=== PATIENT | female | born 2000 | race African-American/Black ===

== ENCOUNTER 2020-06-27 22:51 | Emergency (ER) | payer MEDICAID, SELFPAY ==
[2020-06-27 22:52] VITALS: BP 123/75; PULSE 76; RESP 18; TEMP 36.8; O2SAT 97; BMI 24.1
--- NOTE | 2020-06-27 23:33 | ED.ABDPAIN ---
HPI - Abdominal Pain General Chief Complaint: Abdominal Pain Stated Complaint: Abdominal pain Time Seen by Provider: 06/27/20 23:07 Source: patient Mode of arrival: ambulatory Limitations: no limitations History of Present Illness HPI narrative: 19-year-old female came in with frequent urination, dysuria, patient used [id number] medication to help her symptoms noticed that her urine is turning into wore inch, patient now started to have upper back pain bilaterally, upper abdominal pain in. Patient declined any nausea, vomiting, fever, chills. No vaginal discharge or bleeding. No vomiting or diarrhea. Never had abdominal surgery in the past. Related Data Previous Rx's Medication Instructions Recorded nitrofurantoin monohyd/m-cryst 100 mg PO Q12H 3 Days #6 cap 06/28/20 [Macrobid] Allergies Allergy/AdvReac Type Severity Reaction Status Date / Time pollen extracts [POLLEN] Allergy Intermediate SNEEZING, Unverified 12/04/19 17:23 EYE REDNESS [facility] SOAP Allergy Mild RASH Uncoded 12/04/19 17:23 Review of Systems Review of Systems All other systems are reviewed and are negative Constitutional: Reports as per HPI and Reports no additional constitutional complaints Eyes: Reports as per HPI and Reports no additional eye complaints Reports system reviewed and no additional complaints, except as documented Cardiovascular: Reports as per HPI and Reports no additional cardiovascular complaints Respiratory: Reports as per HPI and Reports no additional respiratory complaints Gastrointestinal: Reports as per HPI and Reports no additional gastrointestinal complaints Genitourinary: Reports no additional female genitourinary complaints Musculoskeletal: Reports no additional musculoskeletal complaints Skin/Breast: Reports system reviewed and no additional complaints, except as docu Psychiatric: Reports no additional psychiatric complaints Endocrine: Reports no additional endocrine complaints Hematologic/Lymphatic: Reports no additional hematologic/lymphatic complaints Allergic/Immunologic: Reports no additional allergic/immunologic complaints Reports system reviewed and no additional complaints, except as documented and Reports Abnormal speech present Physical Exam Vital Signs: Vital Signs: Last Vital Signs Temp 98.3 F 06/27/20 22:52 Pulse 76 06/27/20 22:52 Resp 18 06/27/20 22:52 BP 123/75 06/27/20 22:52 Pulse Ox 97 06/27/20 22:52 Body Mass Index 24.1 Vital signs have been reviewed as appeared to be correct. Blood pressure normal. Heart rate normal. Respiration rate normal. Temperature normal. Oxygen saturation normal. Appearance: Alert. Oriented X3. No acute distress. Head: Normal external exam. Normocephalic. Atraumatic. No Watkins signs noted. No raccoon eyes noted Eyes: PERRLA. EOMI. Conjunctiva and sclera normal. Eyelids normal. ENT: TM's Normal. Pharynx normal. Uvula midline. Moist mucous membranes. No trismus noted. No drooling noted. No muffled voice noted. Neck: Normal inspection. Neck supple. FROM. No adenopathy. Thyroid Normal. No meningeal signs. No neck mass noted. CVS: Normal heart rate and rhythm. Heart sound normal. No murmurs noted. Pulses normal throughout. Respiratory: No respiratory distress. Painless inspiration. Breath sounds normal. No wheezes/rales/rhonchi noted. Chest nontender. No accessory muscle usage noted or decreased air movement noted. Abdomen: Soft, mild epigastric tenderness, no rebound tenderness, no guarding.. Bowel sounds normal in all 4 quadrants. No distention noted. No organomegaly noted. No visible injury noted. Back: Bilateral CVA tenderness. Full range of motion noted. Skin: Skin warm and dry. Normal skin color. Normal skin turgor. No rashes/lesions/lacerations noted. Extremities: No lower extremity edema. Extremities exhibit normal range of motion. Extremities nontender. Neuro: Oriented X 3. No motor deficit. No sensory deficit. Reflexes normal. Course Course Course Narrative: Assessment and plan. 19-year-old female came in with symptoms of urinary frequency, dysuria, upper back pain. UA showing small leuko history is given the patient's symptomatic will start patient on Macrobid for 3 days and encouraged the patient to drink plenty of fluids. MDM - Abdominal Pain Lab Data Attestation: I reviewed the patient's lab results. Result diagrams: 06/28/20 00:00 06/28/20 00:00 Labs: Lab Results 06/28/20 06/28/20 06/28/20 Range/Units 00:00 00:00 00:00 WBC 8.8 (4.8-10.8) X10*3/uL RBC 4.21 (4.20-5.50) X10*6/uL Hgb 11.5 L (12.0-16.0) g/dl Hct 36.2 L (37-47) % MCV 86.0 (80-98) fL MCH 27.3 (27.0-33.0) pg MCHC 31.8 (31.0-35.0) g/dl RDW 13.2 (11.0-16.0) % Plt Count 319 (160-400) X10*3/uL MPV 9.8 (9.4-12.3) fL Immature Gran % (Auto) 0.1 (0.0-0.4) % Neut % (Auto) 59.3 (45-73) % Lymph % (Auto) 30.8 (20-40) % [place] % (Auto) 8.0 (2-11) % Eos % (Auto) 1.3 (0-4) % Baso % (Auto) 0.5 (0-2) % Lymph # (Auto) 2.7 (1.2-4.9) X10*3/uL [place] # (Auto) 0.7 (0.1-1.2) X10*3/uL Eos # (Auto) 0.1 (0.0-0.4) X10*3/uL Baso # (Auto) 0.0 (0.0-0.2) X10*3/uL Abs Immat Gran (auto) 0.01 (0.00-0.03) X10*3/uL Absolute Neuts (auto) 5.2 (2.0-8.3) X10*3/uL Absolute Nucleated RBC 0.000 (0.0-0.012) X10*3/uL Nucleated RBC % (auto) 0.0 (0.0-0.2) /100WBC Sodium 139 (135-145) mmol/L Potassium 4.6 (3.3-5.1) mmol/L Chloride 107 (96-108) mmol/L Carbon Dioxide 21 L (22-29) mmol/L Anion Gap 16 (12-20) BUN 11 (9-16) mg/dL Creatinine 0.91 (0.5-1.4) mg/dL Estim Creat Clear Calc 89.4 Estimated GFR > 60 Random Glucose 82 (60-115) mg/dL Calcium 9.1 (8.4-10.2) mg/dL Total Bilirubin 0.5 (0.0-1.0) mg/dL Direct Bilirubin 0.3 (0.0-0.5) mg/dL AST 16 (5-31) U/L ALT 16 (0-31) U/L Alkaline Phosphatase 81 (39-117) U/L Total Protein 7.4 (6.5-8.0) g/dL Albumin 4.1 (3.5-5.0) g/dL Lipase 13 (8-78) U/L Urine Color DARK YELLOW Urine Appearance HAZY Urine pH 6.0 (5.0-8.0) Ur Specific [place] >= 1.030 H (1.005-1.025) Urine Protein TRACE (NEG-TRACE) MG/DL Urine Glucose (UA) NEG (NEG) MG/DL Urine Ketones 40 (NEG) MG/DL Urine Blood NEG (NEG) Urine Nitrite NEG (NEG) Ur Leukocyte Esterase TRACE H (NEG) Urine RBC 0-2 (0) /HPF Urine WBC 1-4 (0-4) /HPF Ur Squamous Epith Cells 3+ /LPF Urine Bacteria 2+ /LPF Urine Mucus 2+ /LPF Urine Test (NEGATIVE) 06/28/20 Range/Units 00:00 WBC (4.8-10.8) X10*3/uL RBC (4.20-5.50) X10*6/uL Hgb (12.0-16.0) g/dl Hct (37-47) % MCV (80-98) fL MCH (27.0-33.0) pg MCHC (31.0-35.0) g/dl RDW (11.0-16.0) % Plt Count (160-400) X10*3/uL MPV (9.4-12.3) fL Immature Gran % (Auto) (0.0-0.4) % Neut % (Auto) (45-73) % Lymph % (Auto) (20-40) % [place] % (Auto) (2-11) % Eos % (Auto) (0-4) % Baso % (Auto) (0-2) % Lymph # (Auto) (1.2-4.9) X10*3/uL [place] # (Auto) (0.1-1.2) X10*3/uL Eos # (Auto) (0.0-0.4) X10*3/uL Baso # (Auto) (0.0-0.2) X10*3/uL Abs Immat Gran (auto) (0.00-0.03) X10*3/uL Absolute Neuts (auto) (2.0-8.3) X10*3/uL Absolute Nucleated RBC (0.0-0.012) X10*3/uL Nucleated RBC % (auto) (0.0-0.2) /100WBC Sodium (135-145) mmol/L Potassium (3.3-5.1) mmol/L Chloride (96-108) mmol/L Carbon Dioxide (22-29) mmol/L Anion Gap (12-20) BUN (9-16) mg/dL Creatinine (0.5-1.4) mg/dL Estim Creat Clear Calc Estimated GFR Random Glucose (60-115) mg/dL Calcium (8.4-10.2) mg/dL Total Bilirubin (0.0-1.0) mg/dL Direct Bilirubin (0.0-0.5) mg/dL AST (5-31) U/L ALT (0-31) U/L Alkaline Phosphatase (39-117) U/L Total Protein (6.5-8.0) g/dL Albumin (3.5-5.0) g/dL Lipase (8-78) U/L Urine Color Urine Appearance Urine pH (5.0-8.0) Ur Specific [place] (1.005-1.025) Urine Protein (NEG-TRACE) MG/DL Urine Glucose (UA) (NEG) MG/DL Urine Ketones (NEG) MG/DL Urine Blood (NEG) Urine Nitrite (NEG) Ur Leukocyte Esterase (NEG) Urine RBC (0) /HPF Urine WBC (0-4) /HPF Ur Squamous Epith Cells /LPF Urine Bacteria /LPF Urine Mucus /LPF Urine Test NEGATIVE (NEGATIVE) Discharge Plan Discharge Clinical Impression: Dysuria Patient Disposition: Home, Self-Care Instructions: Dysuria (ED) Prescriptions: New nitrofurantoin monohyd/m-cryst [Macrobid] 100 mg capsule 100 mg PO Q12H 3 Days Qty: 6 RF: 0 Referrals: Delia Chang [Emergency Nurse] - 2 days COUNTS INCLUDE 234 BEDS AT THE [facility] Past Medical History Medical History (Updated 06/28/20 @ 00:45 by Loreto Morrison MD) UTI (urinary tract infection) Social History Social History Advance Directives: No Advance Directives Information Provided: No
[2020-06-28 00:06] LABS: MANUAL DIFF FLAG NO
[2020-06-28 00:18] LABS: Basophils Percent Auto 0.5 % (0-2); Eosinophils Absolute Auto 0.1 X10*3/uL (0.0-0.4); Eosinophils Percent Auto 1.3 % (0-4); Hematocrit 36.2 % (37-47); Hemoglobin 11.5 g/dl (12.0-16.0); Imm Gran Abs Auto 0.01 X10*3/uL (0.00-0.03); Imm Gran Pct Auto 0.1 % (0.0-0.4); Lymphocytes Absolute Auto 2.7 X10*3/uL (1.2-4.9); Lymphocytes Percent Auto 30.8 % (20-40); Mean Corpuscular HGB Conc 31.8 g/dl (31.0-35.0); Mean Corpuscular Hemoglobin 27.3 pg (27.0-33.0); Mean Platelet Volume 9.8 fL (9.4-12.3); Monocytes Absolute Auto 0.7 X10*3/uL (0.1-1.2); Neutrophils Absolute Auto 5.2 X10*3/uL (2.0-8.3); Neutrophils Percent Auto 59.3 % (45-73); Platelet Count 319 X10*3/uL (160-400); Red Blood Count 4.21 X10*6/uL (4.20-5.50); Red Cell Distribution Width 13.2 % (11.0-16.0); White Blood Count 8.8 X10*3/uL (4.8-10.8)
[2020-06-28 00:20] LABS: Appearance Urine HAZY; Color Urine DARK YELLOW; Glucose Urine UA NEG (NEG); Leukocyte Esterase Urine TRACE (NEG); Nitrite Urine NEG (NEG); Specific Gravity - Urine >= 1.030 (1.005-1.025); UACC Culture Trigger YES; Urine Blood NEG (NEG); Urine Ketones 40 MG/DL (NEG); Urine Protein TRACE MG/DL (NEG-TRACE)
[2020-06-28 00:27] LABS: UPreg QC Valid YES; Urine Pregnancy NEGATIVE (NEGATIVE)
[2020-06-28 00:29] LABS: Alanine Aminotransferase 16 U/L (0-31); Albumin Level 4.1 g/dL (3.5-5.0); Alkaline Phosphatase 81 U/L (39-117); Anion Gap 16 (12-20); Aspartate Amino Transferase 16 U/L (5-31); Bilirubin Direct 0.3 mg/dL (0.0-0.5); Bilirubin Total 0.5 mg/dL (0.0-1.0); Blood Urea Nitrogen 11 mg/dL (9-16); Calcium 9.1 mg/dL (8.4-10.2); Carbon Dioxide 21 mmol/L (22-29); Chloride 107 mmol/L (96-108); Creatinine Clr Calc Pharmacy 89.4; Estimated Glomerular Filt Rate > 60; Glucose Random 82 mg/dL (60-115); Lipase 13 U/L (8-78); Potassium 4.6 mmol/L (3.3-5.1); Sodium 139 mmol/L (135-145); Total Protein 7.4 g/dL (6.5-8.0)
[2020-06-28 00:31] LABS: Bacteria Urine 2+ /LPF; Mucus Urine 2+ /LPF; RBC Urine 0-2 /HPF (0); Squamous Epithelial Cell Urine 3+ /LPF
== END 2020-06-28 01:05 | disposition home or self-care (01) ==
PROVIDERS: Student in an Organized Health Care Education/Training Program; Emergency Provider Emergency Medicine; PCP Nurse Practitioner Family
DX: R30.0 Dysuria (principal); R10.13 Epigastric pain
CPT/HCPCS: 36415; 80048; 80076; 81001; 81003; 81025; 83690; 85025; 87086; 99283

== ENCOUNTER 2021-10-25 15:27 | Emergency (ER) | payer MEDICAID, SELFPAY ==
[2021-10-25 16:58] VITALS: BP 115/62; PULSE 62; RESP 14; TEMP 36.6; O2SAT 99; BMI 24.1
[2021-10-25 17:09] LABS: MANUAL DIFF FLAG NO
[2021-10-25 17:10] LABS: Basophils Percent Auto 0.4 % (0-2); Eosinophils Absolute Auto 0.4 X10*3/uL (0.0-0.4); Eosinophils Percent Auto 3.8 % (0-4); Hemoglobin 12.6 g/dl (12.0-16.0); Imm Gran Abs Auto 0.03 X10*3/uL (0.00-0.03); Imm Gran Pct Auto 0.3 % (0.0-0.4); Lymphocytes Percent Auto 28.4 % (20-40); Mean Corpuscular HGB Conc 32.3 g/dl (31.0-35.0); Mean Corpuscular Hemoglobin 28.4 pg (27.0-33.0); Mean Corpuscular Volume 87.8 fL (80.0-98.0); Mean Platelet Volume 9.7 fL (9.4-12.3); Monocytes Absolute Auto 0.7 X10*3/uL (0.1-1.2); Neutrophils Absolute Auto 6.4 x10*3/uL (2.0-8.3); Neutrophils Percent Auto 60.1 % (45-73); Platelet Count 262 X10*3/uL (160-400); Red Blood Count 4.44 X10*6/uL (4.20-5.50); Red Cell Distribution Width 13.2 % (11.0-16.0); White Blood Count 10.6 X10*3/uL (4.8-10.8)
[2021-10-25 17:50] LABS: Appearance Urine CLOUDY; Color Urine YELLOW; Glucose Urine UA NEG (NEG); Leukocyte Esterase Urine NEG (NEG); Nitrite Urine NEG (NEG); PH 5.5 (5.0-8.0); Specific Gravity - Urine >= 1.030 (1.005-1.025); UACC Culture Trigger NO; Urine Blood 3+ (NEG); Urine Ketones 5 MG/DL (NEG); Urine Protein TRACE MG/DL (NEG-TRACE)
[2021-10-25 17:53] LABS: UPreg QC Valid YES; Urine Pregnancy NEGATIVE (NEGATIVE)
[2021-10-25 17:57] VITALS: BP 135/80; PULSE 74; RESP 16; TEMP 37.1; O2SAT 98
--- NOTE | 2021-10-25 17:58 | ED_ITS ---
HPI - Female Genitourinary General Chief complaint: Vaginal Bleeding Stated complaint: Vag Bleed Cramping Time Seen by Provider: 10/25/21 17:43 Source: patient Mode of arrival: ambulatory Limitations: no limitations History of Present Illness HPI Narrative: Patient presents emergency department for evaluation of vaginal symptoms. she reports a couple days of vaginal itching, discomfort, white discharge, and spec ks of blood. Reports last menstrual period 10/16/2021, normal in duration and flow. Not using any form of contraceptive, currently sexually active. Denies concern for sexually transmitted infections. Reports a history of urinary tract infection, denies any history of vaginal infections. Denies fevers, chills, nausea, vomiting, abdominal pain, dysuria, urinary frequency/urgency/hesitancy. Related Data Previous Rx's Medication Instructions Recorded nitrofurantoin 100 mg PO Q12H 3 days #6 caps 06/28/20 monohydrate/macrocrystals 100 mg capsule (Macrobid) fluconazole 150 mg tablet 150 mg PO Q3D 2 doses #2 tabs 10/25/21 (Diflucan) Allergies Allergy/AdvReac Type Severity Reaction Status Date / Time pollen extracts [POLLEN] Allergy Intermediate SNEEZING, Unverified 10/25/21 16: 57 EYE REDNESS [facility] SOAP Allergy Mild RASH Uncoded 12/04/19 17:23 Review of Systems Review of Systems: Constitutional : No Fever, No Chills ENT/Mouth : No sore throat, No Rhinorrhea Eyes: No Eye Pain, No Redness Cardiovascular : No Chest Pain, No SOB Respiratory : No Cough, No Sputum, No Wheezing Gastrointestinal : No Nausea, No Vomiting, No Diarrhea, no abdominal pain, Genitourinary : No irregular bleeding, No Dysuria, No Urinary Frequency, positive vaginal discomfort, positive vaginal discharge Musculoskeletal : No Myalgias Skin : No rash Neuro : No Weakness, No Headache Psych : No Anxiety/Panic, No Depression Heme/Lymph: No bruising, No Lymphadenopathy Endocrine : No Polyuria, No Polydipsia Yes all other systems are reviewed and are negative [facility] Past Medical History Attestation statement: The following information was validated with the patient. Source: old records reviewed Medical History UTI (urinary tract infection) Social History Social History Advance Directives: No Advance Directives Information Provided: Yes Physical Exam Vital Signs: Vital Signs: Last Vital Signs Temp 98.7 F 10/25/21 17:57 Pulse 74 10/25/21 17:57 Resp 16 10/25/21 17:57 BP 135/80 10/25/21 17:57 Pulse Ox 98 10/25/21 17:57 O2 Del Method 10/25/21 17:57 BMI result Body Mass Index 24.1 Vital signs have been reviewed as normal and appeared to be correct. Blood pressure normal.? Heart rate normal.? Respiration rate normal. Temperature normal.? Oxygen saturation normal. Appearance: Alert.?Oriented to person, place and time. No acute distress.?Normal affect. Neck: Normal inspection.? Neck supple.?? CVS: Heart sounds normal. Normal heart rate and rhythm.? Pulses normal.?? Respiratory: No respiratory distress.? Lung sounds clear to auscultation bilaterally?? Abdomen: Soft and non-tender. Declined genitourinary exam Skin: Skin warm and dry.? Normal skin color.? Extremities: No lower extremity edema.? Neuro: Moves all extremities spontaneously. Sensation intact bilaterally. No motor deficits Ambulates with normal steady gait. Course Course Course Narrative: Patient is a 21-year-old female who presents emergency department for evaluation of vaginal symptoms, states she is concerned for vaginal infection or urinary tract infection. Abdominal exam is benign. Denies possibility of sexually transmitted infection, declines testing for chlamydia/gonorrhea, advised cannot completely exclude these infections the testing for them she verbalizes understanding of this.. Declines genitourinary exam. Denies any lesions. Discussed self swabbing for bacterial vaginosis panel. Given presence of discomfort, discharge will treat for vaginal yeast infection. Advised patient to be contacted should results for bacterial vaginosis return as positive, and discuss subsequent treatment. Urinalysis reveals without evidence of infection, urine test negative. MDM - Female Genitourinary Medical Records Attestation: I reviewed the patient's medical records. Lab Data Attestation: I reviewed the patient's lab results. Result diagrams: 10/25/21 17:03 Labs: Lab Results 10/25/21 10/25/21 10/25/21 Range/Units 17:03 17:29 17:29 WBC 10.6 (4.8-10.8) X10*3/uL RBC 4.44 (4.20-5.50) X10*6/uL Hgb 12.6 (12.0-16.0) g/dl Hct 39.0 (37.0-47.0) % MCV 87.8 (80.0-98.0) fL MCH 28.4 (27.0-33.0) pg MCHC 32.3 (31.0-35.0) g/dl RDW 13.2 (11.0-16.0) % Plt Count 262 (160-400) X10*3/uL MPV 9.7 (9.4-12.3) fL Immature Gran % (Auto) 0.3 (0.0-0.4) % Neut % (Auto) 60.1 (45-73) % Lymph % (Auto) 28.4 (20-40) % [place] % (Auto) 7.0 (2-11) % Eos % (Auto) 3.8 (0-4) % Baso % (Auto) 0.4 (0-2) % Lymph # (Auto) 3.0 (1.2-4.9) X10*3/uL [place] # (Auto) 0.7 (0.1-1.2) X10*3/uL Eos # (Auto) 0.4 (0.0-0.4) X10*3/uL Baso # (Auto) 0.0 (0.0-0.2) X10*3/uL Abs Immat Gran (auto) 0.03 (0.00-0.03) X10*3/uL Absolute Neuts (auto) 6.4 (2.0-8.3) x10*3/uL Absolute Nucleated RBC 0.000 (0.0-0.012) X10*3/uL Nucleated RBC % (auto) 0.0 (0.0-0.2) /100WBC Urine Color YELLOW Urine Appearance CLOUDY Urine pH 5.5 (5.0-8.0) Ur Specific [place] >= 1.030 H (1.005-1.025) Urine Protein TRACE (NEG-TRACE) MG/DL Urine Glucose (UA) NEG (NEG) MG/DL Urine Ketones 5 (NEG) MG/DL Urine Blood 3+ H (NEG) Urine Nitrite NEG (NEG) Ur Leukocyte Esterase NEG (NEG) Urine RBC 50-75 H (0) /HPF Urine WBC 0 (0-4) /HPF Ur Squamous Epith Cells 3+ /LPF Urine Bacteria TRACE /LPF Urine Mucus 4+ /LPF Urine Test NEGATIVE (NEGATIVE) Discharge Plan Discharge Clinical Impression: Candidiasis of vagina Patient Disposition: Home, Self-Care Instructions: Yeast Infection (ED) Additional Instructions: Your offered testing for sexually transmitted infections, however you declined. Testing results for yeast infection, and bacterial vaginosis will be available in a few days. Should the bacterial vaginosis resulted positive you will be contacted and provided with treatment. Take Diflucan as prescribed for vaginal yeast infection. If you continue to have symptoms 3 days after taking the initial Diflucan you may take a 2nd dose. Avoid excessively cleansing the area, water and mild non-scented soap maybe used, stay well hydrated, drink plenty of fluids. Follow-up with your doctor as needed for persistent symptoms. Return to the emergency department any new or worsening symptoms or concerns Prescriptions: New fluconazole [Diflucan] 150 mg tablet 150 mg PO Q3D Qty: 2 0RF No Action nitrofurantoin monohyd/m-cryst [Macrobid] 100 mg capsule 100 mg PO Q12H 3 Days Qty: 6 0RF Rx Instructions: must administer with a meal/food Interventions: ED Discharge Assessment Last Done: 10/25/21 18:39 Discharge Date/Time: 10/25/21 18:41
[2021-10-25 18:11] LABS: Bacteria Urine TRACE /LPF; Mucus Urine 4+ /LPF; RBC Urine 50-75 /HPF (0); Squamous Epithelial Cell Urine 3+ /LPF; WBC Urine 0 /HPF (0-4)
[2021-10-26 14:21] LABS: BV Int Neg Control Negative (Negative); BV Int Pos Control Positive (Positive)
== END 2021-10-25 18:41 | disposition home or self-care (01) ==
PROVIDERS: Nurse Practitioner Family; Emergency Provider Emergency Medicine
DX: B37.3 Candidiasis of vulva and vagina (principal)
CPT/HCPCS: 36415; 81001; 81025; 85025; 87480; 87510; 87660; 99283

== ENCOUNTER 2022-02-19 11:04 | Emergency (ER) | payer MEDICAID, SELFPAY ==
--- NOTE | ~2022-02-19 | CT_ITS ---
EXAMINATION: CT ANGIOGRAM OF THE CHEST WITH AND WITHOUT CONTRAST (CT PULMONARY ANGIOGRAM FOR PE) CLINICAL INFORMATION: Reason for Exam pleurisy and elevated D-dimer COMPARISON: None TECHNIQUE: Prior to contrast administration, noncontrast localization images were obtained. Subsequently, multidetector volumetric imaging was performed from the thoracic inlet to below the diaphragms following the administration of 65 mL Omnipaque 350 intravenous contrast. No contrast reaction reported Sagittal, coronal, and MIP oblique sagittal reformatted images were obtained on the CT workstation, uploaded to PACS, and reviewed. This CT examination was performed using dose optimization techniques as appropriate, variously including the following: *Automated exposure control *Adjustment of mA and/or kV according to patient size (this includes techniques or standardized protocols for targeted exams where dose is matched to indication/reason for exam; i.e. extremities or head) *Use of iterative reconstruction technique Total exam dose-length product 312 mGy-cm FINDINGS: QUALITY OF STUDY/CONTRAST BOLUS: Satisfactory. PULMONARY ARTERIES: No central or segmental pulmonary emboli. THORACIC AORTA: No aneurysm or dissection. LUNG: No focal consolidation, nodules or masses. PLEURA: No pleural effusion or pneumothorax. MEDIASTINUM: Normal heart size. No pericardial effusion. No hilar or mediastinal lymphadenopathy. No evidence of septal bowing or right heart strain. CHEST WALL/AXILLA: No axillary or internal mammary lymphadenopathy. OSSEOUS STRUCTURES: No acute or suspicious osseous abnormality. UPPER ABDOMEN: Unremarkable. No reflux of contrast into the hepatic veins to suggest elevated right heart pressures. CT/CT angio chest PE protocol IMPRESSION: No evidence of pulmonary embolism. No acute cardiopulmonary findings. VTE: negative
--- NOTE | ~2022-02-19 | XR_ITS ---
EXAMINATION: XR CHEST CLINICAL INFORMATION: Cough with chest discomfort COMPARISON: August 02, 2017 TECHNIQUE: 2 views of the chest were obtained. FINDINGS: No significant abnormality is noted involving the heart, lungs, mediastinum, bony thorax or soft tissues. XR/XR chest 2V IMPRESSION: No acute disease.
[2022-02-19 11:15] VITALS: BP 128/81; PULSE 76; RESP 18; TEMP 36.9; O2SAT 100; BMI 25.0
--- NOTE | 2022-02-19 11:23 | ED_ITS ---
HPI - URI/Sore Throat General Chief Complaint: Upper Respiratory Symptoms <Janet Douglass NP - Last Filed: 02/19/22 11:25> Stated Complaint: Rib pain/Chest pain <Janet Douglass NP - Last Filed: 02/19/22 11:25> Time Seen by Provider: 02/19/22 12:45 <Janet Douglass NP - Last Filed: 02/19/22 11:25> Source: patient <JACKIE Sandoval - Last Filed: 02/20/22 12:42> Mode of arrival: ambulatory <JACKIE Sandoval Last Filed: 02/20/22 12:42> Limitations: no limitations <JACKIE Sandoval Last Filed: 02/20/22 12:42> History of Present Illness HPI Narrative: 21-year-old female healthy presents to ED for coughing, chest pain on inspiration and bilateral rib pain. Patient concern for pleurisy. Patient denies any leg swelling, calf pain, coughing up blood, or being on any control. Patient denies any recent trauma recent surgery <JACKIE Sandoval Last Filed: 02/20/22 12:42> Related Data Home Medications: Previous Rx's Medication Instructions Recorded nitrofurantoin 100 mg PO Q12H 3 days #6 caps 06/28/20 monohydrate/macrocrystals 100 mg capsule (Macrobid) fluconazole 150 mg tablet 150 mg PO Q3D 2 doses #2 tabs 10/25/21 (Diflucan) benzonatate 100 mg capsule 100 mg PO TID PRN cough 5 days #15 02/19/22 caps ibuprofen 400 mg tablet 400 mg PO Q6H PRN pain 7 days #28 02/19/22 tabs <Janet Douglass NP - Last Filed: 02/19/22 11:25> Allergies/Adverse Reactions: Allergies Allergy/AdvReac Type Severity Reaction Status Date / Time pollen extracts [POLLEN] Allergy Intermediate SNEEZING, Unverified 10/25/21 16:[address] [facility] SOAP Allergy Mild RASH Uncoded 12/04/19 17:[address] <[address] Last Filed: 02/19/22 11:25> Review of Systems Review of Systems: Pleurisy cough and rib pain <JACKIE Sandoval - Last Filed: 02/20/22 12:42> Yes all other systems are reviewed and are negative <JACKIE Sandoval - Last Filed: 02/20/22 12:42> [facility] Past Medical History Medical History: Medical History UTI (urinary tract infection) <Janet Douglass NP - Last Filed: 02/19/22 11:25> Social History Social History: Social History Advance Directives: No Advance Directives Information Provided: No <Janet Douglass NP - Last Filed: 02/19/22 11:25> Physical Exam Vital Signs: Vital Signs: Last Vital Signs Temp 98.5 F 02/19/22 11:15 Pulse 76 02/19/22 11:15 Resp 18 02/19/22 11:15 BP 128/81 02/19/22 11:15 Pulse Ox 100 02/19/22 11:15 O2 Del Method 02/19/22 11:15 BMI result Body Mass Index 25.0 <Janet Douglass NP - Last Filed: 02/19/22 11:25> Vital Signs: Last Vital Signs Temp 98.5 F 02/19/22 11:15 Pulse 76 02/19/22 11:15 Resp 18 02/19/22 11:15 BP 128/81 02/19/22 11:15 Pulse Ox 100 02/19/22 11:15 O2 Del Method 02/19/22 11:15 BMI result Body Mass Index 25.0 <JACKIE Sandoval - Last Filed: 02/20/22 12:42> Const: General: cooperative, healthy appearing, comfortable, no acute d istress, well developed, alert, awake and Physically active <JACKIE Sandoval - Last Filed: 02/20/22 12:42> Orientation/consciousness: oriented to person, oriented to place, oriented to time and patient oriented x3 <JACKIE Sandoval Last Filed: 02/20/22 12:42> HEENT: Head: Yes normal to inspection, Yes No palpable skull fracture present, Yes normocephalic, Yes atraumatic and No abrasion <JACKIE Sandoval Last Filed: 02/20/22 12:42> Eyes: General: appearance normal, both eyes and all related structures <JACKIE Sandoval Last Filed: 02/20/22 12:42> Neck: Neck: Yes normal visual inspection, Yes full ROM, Yes no lymphadenopathy, Yes no meningeal signs, Yes trachea midline, Yes supple, No anterior neck swelling and No tender <JACKIE Sandoval Last Filed: 02/20/22 12:42> Chest: Chest palpation & inspection: normal inspection of the chest <JACKIE Sandoval Last Filed: 02/20/22 12:42> Breast/axilla inspection: normal inspection of the breasts <JACKIE Sandoval Last Filed: 02/20/22 12:42> Chest/axillae images: 1. Tenderness on palpation. Negative for erythema, rash, ecchymosis, or crepitus. 2. Tenderness on palpation. Negative for erythema, rash, ecchymosis, or crepitus. <Janet Douglass NP - Last Filed: 02/19/22 11:25> Chest/axillae images: 1. Tenderness on palpation. Negative for erythema, rash, ecchymosis, or crepitus. 2. Tenderness on palpation. Negative for erythema, rash, ecchymosis, or crepitus. <JACKIE Sandoval Last Filed: 02/20/22 12:42> Resp: Effort & Inspection: normal respiratory effort and able to speak in complete sentences <JACKIE Sandoval Last Filed: 02/20/22 12:42> Auscultation: clear to auscultation bilaterally <JACKIE Sandoval Last Filed: 02/20/22 12:42> Cardio: Jugular venous distension: no JVD <AJCKIE Sandoval Last Filed: 02/20/22 12:42> Heart sounds: S1 normal heart sound present and S2 normal heart sound present <JACKIE Sandoval Last Filed: 02/20/22 12:42> GI: Inspection: Yes normal to inspection and No abdominal wall ecchymosis <JACKIE Sandoval - Last Filed: 02/20/22 12:42> Palpation (GI): Soft to palpation, not firm, nontender, no guarding and not rigid <JACKIE Sandoval - Last Filed: 02/20/22 12:42> : General: No CVA tenderness and Yes no CVA tenderness <JACKIE Sandoval - Last Filed: 02/20/22 12:42> Back/Spine/Pelvis: Back: no CVA tenderness, No CVA tenderness and No back tenderness <JACKIE Sandoval - Last Filed: 02/20/22 12:42> Skin: General skin exam: no rashes or lesions noted and elasticity normal <JACKIE Sandoval - Last Filed: 02/20/22 12:42> Neuro: General: oriented to person, oriented to place, oriented to time, patient oriented x3, gait normal and no meningeal signs <JACKIE Sandoval - Last Filed: 02/20/22 12:42> Cranial nerves: Yes CN's II-XII intact bilaterally <JACKIE Sandoval - Last Filed: 02/20/22 12:42> Extrem: Other: Bilateral extremities negative for swelling, pitting edema, or calf tenderness <JACKIE Sandoval - Last Filed: 02/20/22 12:42> General: Yes normal to inspection and Yes full ROM <JACKIE Sandoval - Last Filed: 02/20/22 12:42> Psych: Appearance: grossly normal, well kempt and not disheveled <JACKIE Sandoval - Last Filed: 02/20/22 12:42> Course Course Course Narrative: This is a rapid medical exam. Deferred additional HPI, ROS, PE to primary provider. 21-year-old female with history of asthma here with URI symptoms for 1 week now with some chest discomfort which is worsened with coughing and breathing. Vitals are stable. Will check chest x-ray, testing for flu, COVID, RSV <Janet Douglass NP - Last Filed: 02/19/22 11:25> Reevaluation(s) Reevaluation #1: SARS RSV COVID chest x-ray came back normal. Patient pain and pleurisy most likely costochondritis but did EKG labs D-dimer which came back elevated. Chest CTA is pending. EKG negative STEMI. Troponin negative. Signed out to JACKIE Motley <JACKIE Sandoval - Last Filed: 02/20/22 12:42> Time: 18:46 <JACKIE Sandoval - Last Filed: 02/20/22 12:42> Medications Administered Discontinued Medications Generic Name Dose Route Start Last Admin Trade Name Freq PRN Reason Stop Dose Admin Iohexol 100 ml 02/19/22 17:24 02/19/22 17:24 Iohexol 350 Mg/Ml 100 Ml Infus..Btl IV 02/19/22 17:25 65 ml ONCE ONE Administration <Janet Douglass NP - Last Filed: 02/19/22 11:25> Medications Administered Discontinued Medications Generic Name Dose Route Start Last Admin Trade Name Freq PRN Reason Stop Dose Admin Iohexol 100 ml 02/19/22 17:24 02/19/22 17:24 Iohexol 350 Mg/Ml 100 Ml Infus..Btl IV 02/19/22 17:25 65 ml ONCE ONE Administration <JACKIE Sandoval - Last Filed: 02/20/22 12:42> MDM - URI/Sore Throat MDM Narrative Medical decision making narrative: Costochondritis. URI <JACKIE Sandoval - Last Filed: 02/20/22 12:42> Lab Data Result diagrams: : 02/19/22 14:50 02/19/22 14:50 <Janet Douglass NP - Last Filed: 02/19/22 11:25> Labs: Lab Results 02/19/22 02/19/22 02/19/22 Range/Units 11:52 14:50 14:50 WBC 8.2 (4.8-10.8) X10*3/uL RBC 4.60 (4.20-5.50) X10*6/uL Hgb 12.8 (12.0-16.0) g/dl Hct 39.6 (37.0-47.0) % MCV 86.1 (80.0-98.0) fL MCH 27.8 (27.0-33.0) pg MCHC 32.3 (31.0-35.0) g/dl RDW 12.9 (11.0-16.0) % Plt Count 284 (160-400) X10*3/uL MPV 9.7 (9.4-12.3) fL Immature Gran % (Auto) 0.2 (0.0-0.4) % Neut % (Auto) 57.6 (45-73) % Lymph % (Auto) 31.9 (20-40) % [place] % (Auto) 8.9 (2-11) % Eos % (Auto) 1.0 (0-4) % Baso % (Auto) 0.4 (0-2) % Lymph # (Auto) 2.6 (1.2-4.9) X10*3/uL [place] # (Auto) 0.7 (0.1-1.2) X10*3/uL Eos # (Auto) 0.1 (0.0-0.4) X10*3/uL Baso # (Auto) 0.0 (0.0-0.2) X10*3/uL Abs Immat Gran (auto) 0.02 (0.00-0.03) X10*3/uL Absolute Neuts (auto) 4.7 (2.0-8.3) x10*3/uL Absolute Nucleated RBC 0.000 (0.0-0.012) X10*3/uL Nucleated RBC % (auto) 0.0 (0.0-0.2) /100WBC PT 12.5 (10.0-13.1) SEC INR 1.1 (0.9-1.1) APTT 30.8 (26.0-36.4) SEC D-Dimer High Sensitivty 284 NG/ML Sodium (135-145) mmol/L Potassium (3.3-5.1) mmol/L Chloride (96-108) mmol/L Carbon Dioxide (22-29) mmol/L Anion Gap (12-20) BUN (9-16) mg/dL Creatinine (0.5-1.4) mg/dL Estim Creat Clear Calc Estimated GFR Random Glucose (60-115) mg/dL Calcium (8.4-10.2) mg/dL Total Bilirubin (0.0-1.0) mg/dL AST (5-31) U/L ALT (0-31) U/L Alkaline Phosphatase (39-117) U/L Troponin I High Sens (<3.5-17.0) ng/L B-Natriuretic Peptide (<100) pg/mL Total Protein (6.5-8.0) g/dL Albumin (3.5-5.0) g/dL Beta HCG, Quant mIU/mL Influenza Type A (PCR) NEGATIVE (Negative) Influenza Type B (PCR) NEGATIVE (Negative) RSV RNA Qual (PCR) NEGATIVE (Negative) SARS-CoV-2 RNA (RT-PCR) NEGATIVE (Negative) 02/19/22 02/19/22 02/19/22 Range/Units 14:50 14:50 14:50 WBC (4.8-10.8) X10*3/uL RBC (4.20-5.50) X10*6/uL Hgb (12.0-16.0) g/dl Hct (37.0-47.0) % MCV (80.0-98.0) fL MCH (27.0-33.0) pg MCHC (31.0-35.0) g/dl RDW (11.0-16.0) % Plt Count (160-400) X10*3/uL MPV (9.4-12.3) fL Immature Gran % (Auto) (0.0-0.4) % Neut % (Auto) (45-73) % Lymph % (Auto) (20-40) % [place] % (Auto) (2-11) % Eos % (Auto) (0-4) % Baso % (Auto) (0-2) % Lymph # (Auto) (1.2-4.9) X10*3/uL [place] # (Auto) (0.1-1.2) X10*3/uL Eos # (Auto) (0.0-0.4) X10*3/uL Baso # (Auto) (0.0-0.2) X10*3/uL Abs Immat Gran (auto) (0.00-0.03) X10*3/uL Absolute Neuts (auto) (2.0-8.3) x10*3/uL Absolute Nucleated RBC (0.0-0.012) X10*3/uL Nucleated RBC % (auto) (0.0-0.2) /100WBC PT (10.0-13.1) SEC INR (0.9-1.1) APTT (26.0-36.4) SEC D-Dimer High Sensitivty NG/ML Sodium 135 (135-145) mmol/L Potassium 4.3 (3.3-5.1) mmol/L Chloride 108 (96-108) mmol/L Carbon Dioxide 24 (22-29) mmol/L Anion Gap 7 L (12-20) BUN 9 (9-16) mg/dL Creatinine 0.88 (0.5-1.4) mg/dL Estim Creat Clear Calc 91.0 Estimated GFR > 60 Random Glucose 83 (60-115) mg/dL Calcium 9.6 (8.4-10.2) mg/dL Total Bilirubin 0.5 (0.0-1.0) mg/dL AST 17 (5-31) U/L ALT 14 (0-31) U/L Alkaline Phosphatase 77 (39-117) U/L Troponin I High Sens < 3.5 (<3.5-17.0) ng/L B-Natriuretic Peptide 18 (<100) pg/mL Total Protein 7.5 (6.5-8.0) g/dL Albumin 4.2 (3.5-5.0) g/dL Beta HCG, Quant < 2 mIU/mL Influenza Type A (PCR) (Negative) Influenza Type B (PCR) (Negative) RSV RNA Qual (PCR) (Negative) SARS-CoV-2 RNA (RT-PCR) (Negative) <Janet Douglass NP - Last Filed: 02/19/22 11:25> Lab Results 02/19/22 02/19/22 02/19/22 Range/Units 11:52 14:50 14:50 WBC 8.2 (4.8-10.8) X10*3/uL RBC 4.60 (4.20-5.50) X10*6/uL Hgb 12.8 (12.0-16.0) g/dl Hct 39.6 (37.0-47.0) % MCV 86.1 (80.0-98.0) fL MCH 27.8 (27.0-33.0) pg MCHC 32.3 (31.0-35.0) g/dl RDW 12.9 (11.0-16.0) % Plt Count 284 (160-400) X10*3/uL MPV 9.7 (9.4-12.3) fL Immature Gran % (Auto) 0.2 (0.0-0.4) % Neut % (Auto) 57.6 (45-73) % Lymph % (Auto) 31.9 (20-40) % [place] % (Auto) 8.9 (2-11) % Eos % (Auto) 1.0 (0-4) % Baso % (Auto) 0.4 (0-2) % Lymph # (Auto) 2.6 (1.2-4.9) X10*3/uL [place] # (Auto) 0.7 (0.1-1.2) X10*3/uL Eos # (Auto) 0.1 (0.0-0.4) X10*3/uL Baso # (Auto) 0.0 (0.0-0.2) X10*3/uL Abs Immat Gran (auto) 0.02 (0.00-0.03) X10*3/uL Absolute Neuts (auto) 4.7 (2.0-8.3) x10*3/uL Absolute Nucleated RBC 0.000 (0.0-0.012) X10*3/uL Nucleated RBC % (auto) 0.0 (0.0-0.2) /100WBC PT 12.5 (10.0-13.1) SEC INR 1.1 (0.9-1.1) APTT 30.8 (26.0-36.4) SEC D-Dimer High Sensitivty 284 NG/ML Sodium (135-145) mmol/L Potassium (3.3-5.1) mmol/L Chloride (96-108) mmol/L Carbon Dioxide (22-29) mmol/L Anion Gap (12-20) BUN (9-16) mg/dL Creatinine (0.5-1.4) mg/dL Estim Creat Clear Calc Estimated GFR Random Glucose (60-115) mg/dL Calcium (8.4-10.2) mg/dL Total Bilirubin (0.0-1.0) mg/dL AST (5-31) U/L ALT (0-31) U/L Alkaline Phosphatase (39-117) U/L Troponin I High Sens (<3.5-17.0) ng/L B-Natriuretic Peptide (<100) pg/mL Total Protein (6.5-8.0) g/dL Albumin (3.5-5.0) g/dL Beta HCG, Quant mIU/mL Influenza Type A (PCR) NEGATIVE (Negative) Influenza Type B (PCR) NEGATIVE (Negative) RSV RNA Qual (PCR) NEGATIVE (Negative) SARS-CoV-2 RNA (RT-PCR) NEGATIVE (Negative) 02/19/22 02/19/22 02/19/22 Range/Units 14:50 14:50 14:50 WBC (4.8-10.8) X10*3/uL RBC (4.20-5.50) X10*6/uL Hgb (12.0-16.0) g/dl Hct (37.0-47.0) % MCV (80.0-98.0) fL MCH (27.0-33.0) pg MCHC (31.0-35.0) g/dl RDW (11.0-16.0) % Plt Count (160-400) X10*3/uL MPV (9.4-12.3) fL Immature Gran % (Auto) (0.0-0.4) % Neut % (Auto) (45-73) % Lymph % (Auto) (20-40) % [place] % (Auto) (2-11) % Eos % (Auto) (0-4) % Baso % (Auto) (0-2) % Lymph # (Auto) (1.2-4.9) X10*3/uL [place] # (Auto) (0.1-1.2) X10*3/uL Eos # (Auto) (0.0-0.4) X10*3/uL Baso # (Auto) (0.0-0.2) X10*3/uL Abs Immat Gran (auto) (0.00-0.03) X10*3/uL Absolute Neuts (auto) (2.0-8.3) x10*3/uL Absolute Nucleated RBC (0.0-0.012) X10*3/uL Nucleated RBC % (auto) (0.0-0.2) /100WBC PT (10.0-13.1) SEC INR (0.9-1.1) APTT (26.0-36.4) SEC D-Dimer High Sensitivty NG/ML Sodium 135 (135-145) mmol/L Potassium 4.3 (3.3-5.1) mmol/L Chloride 108 (96-108) mmol/L Carbon Dioxide 24 (22-29) mmol/L Anion Gap 7 L (12-20) BUN 9 (9-16) mg/dL Creatinine 0.88 (0.5-1.4) mg/dL Estim Creat Clear Calc 91.0 Estimated GFR > 60 Random Glucose 83 (60-115) mg/dL Calcium 9.6 (8.4-10.2) mg/dL Total Bilirubin 0.5 (0.0-1.0) mg/dL AST 17 (5-31) U/L ALT 14 (0-31) U/L Alkaline Phosphatase 77 (39-117) U/L Troponin I High Sens < 3.5 (<3.5-17.0) ng/L B-Natriuretic Peptide 18 (<100) pg/mL Total Protein 7.5 (6.5-8.0) g/dL Albumin 4.2 (3.5-5.0) g/dL Beta HCG, Quant < 2 mIU/mL Influenza Type A (PCR) (Negative) Influenza Type B (PCR) (Negative) RSV RNA Qual (PCR) (Negative) SARS-CoV-2 RNA (RT-PCR) (Negative) <JACKIE Sandoval - Last Filed: 02/20/22 12:42> ECG Data Interpretation: Normal sinus rhythm. Ventricular rate 69. Pr interval 142. QRS 82 pr QTC 420. Negative STEMI <JACKIE Sandoval - Last Filed: 02/20/22 12:42> Discharge Plan Discharge Clinical Impression: Upper respiratory infection <Janet Douglass NP - Last Filed: 02/19/22 11:25> Patient Disposition: Home, Self-Care <Janet Douglass NP - Last Filed: 02/19/22 11:25> Instructions: Upper Respiratory Infection (ED) <Janet Douglass NP - Last Filed: 02/19/22 11:25> Additional Instructions: Blood work, EKG, chest x-ray, chest CTA came back normal negative for signs of heart attack, heart failure, pulmonary embolus. Were negative for COVID, influenza, and RSV. Return to the ED immediately for any weakness, dizziness, coughing up blood, leg swelling, calf pain, worsening chest pain on inspiration, or any other concerning symptoms. <Janet Douglass NP - Last Filed: 02/19/22 11:25> Prescriptions: New benzonatate 100 mg capsule 100 mg PO TID PRN (Reason: cough) 5 Days Qty: 15 0RF ibuprofen 400 mg tablet 400 mg PO Q6H PRN (Reason: pain) 7 Days Qty: 28 0RF No Action nitrofurantoin monohyd/m-cryst [Macrobid] 100 mg capsule 100 mg PO Q12H 3 Days Qty: 6 0RF Rx Instructions: must administer with a meal/food fluconazole [Diflucan] 150 mg tablet 150 mg PO Q3D Qty: 2 0RF <Janet Douglass NP - Last Filed: 02/19/22 11:25> Stand Alone Forms: Work/School Release <Janet Douglass NP - Last Filed: 02/19/22 11:25> Interventions: ED Discharge Assessment Last Done: 02/19/22 19:31 <Janet Douglass NP - Last Filed: 02/19/22 11:25> Discharge Date/Time: 02/19/22 19:36 <Janet Douglass NP - Last Filed: 02/19/22 11:25> Print Language: [place] <Janet Douglass NP - Last Filed: 02/19/22 11:25>
[2022-02-19 12:35] LABS: Influenza A PCR NEGATIVE (Negative); Influenza B PCR NEGATIVE (Negative); Resp Syncy Virus RNA Qual PCR NEGATIVE (Negative); SARS COV2 PCR INHOUSE NEGATIVE (Negative)
--- NOTE | 2022-02-19 14:28 | ECG_ITS ---
Test Reason : CHEST PAIN Blood Pressure : / mmHG Vent. Rate : 069 BPM Atrial Rate : 069 BPM P-R Int : 142 ms QRS Dur : 082 ms QT Int : 392 ms P-R-T Axes : 059 032 024 degrees QTc Int : 420 ms Normal sinus rhythm Normal ECG When compared with ECG of 02-AUG-2017 18:20, Previous ECG has undetermined rhythm, needs review Referred By: Neri Landa Electronically Signed By:STERLING SANTIAGO MD
[2022-02-19 14:56] LABS: MANUAL DIFF FLAG NO
[2022-02-19 14:58] LABS: Basophils Percent Auto 0.4 % (0-2); Eosinophils Absolute Auto 0.1 X10*3/uL (0.0-0.4); Hematocrit 39.6 % (37.0-47.0); Hemoglobin 12.8 g/dl (12.0-16.0); Imm Gran Abs Auto 0.02 X10*3/uL (0.00-0.03); Imm Gran Pct Auto 0.2 % (0.0-0.4); Lymphocytes Absolute Auto 2.6 X10*3/uL (1.2-4.9); Lymphocytes Percent Auto 31.9 % (20-40); Mean Corpuscular HGB Conc 32.3 g/dl (31.0-35.0); Mean Corpuscular Hemoglobin 27.8 pg (27.0-33.0); Mean Corpuscular Volume 86.1 fL (80.0-98.0); Mean Platelet Volume 9.7 fL (9.4-12.3); Monocytes Absolute Auto 0.7 X10*3/uL (0.1-1.2); Monocytes Percent Auto 8.9 % (2-11); Neutrophils Absolute Auto 4.7 x10*3/uL (2.0-8.3); Neutrophils Percent Auto 57.6 % (45-73); Platelet Count 284 X10*3/uL (160-400); Red Cell Distribution Width 12.9 % (11.0-16.0); White Blood Count 8.2 X10*3/uL (4.8-10.8)
[2022-02-19 15:04] LABS: INTERNATIONAL NORM RATIO 1.1 (0.9-1.1); Prothrombin Time 12.5 SEC (10.0-13.1)
[2022-02-19 15:06] LABS: D Dimer High Sensitivity 284 NG/ML; Partial Thromboplastin Time 30.8 SEC (26.0-36.4)
[2022-02-19 15:32] LABS: Troponin-I High Sensitivity < 3.5 ng/L (<3.5-17.0)
[2022-02-19 15:37] LABS: Alanine Aminotransferase 14 U/L (0-31); Albumin Level 4.2 g/dL (3.5-5.0); Alkaline Phosphatase 77 U/L (39-117); Anion Gap 7 (12-20); Aspartate Amino Transferase 17 U/L (5-31); Bilirubin Total 0.5 mg/dL (0.0-1.0); Blood Urea Nitrogen 9 mg/dL (9-16); Calcium 9.6 mg/dL (8.4-10.2); Carbon Dioxide 24 mmol/L (22-29); Chloride 108 mmol/L (96-108); Estimated Glomerular Filt Rate > 60; Glucose Random 83 mg/dL (60-115); Potassium 4.3 mmol/L (3.3-5.1); Sodium 135 mmol/L (135-145); Total Protein 7.5 g/dL (6.5-8.0)
[2022-02-19 16:13] LABS: HCG Quantitative < 2 mIU/mL
[2022-02-19 16:19] LABS: B Type Natriuretic Peptide 18 pg/mL (<100)
[2022-02-19] MEDS: iohexoL 350 MG/ML 100 ML INFUS..BTL IV (17:24)
== END 2022-02-19 19:36 | disposition home or self-care (01) ==
PROVIDERS: Nurse Practitioner Family; Physician Assistant; Emergency Provider Emergency Medicine
DX: J06.9 Acute upper respiratory infection, unspecified (principal); R07.89 Other chest pain; R07.81 Pleurodynia; R06.02 Shortness of breath; Z20.822 Contact with and (suspected) exposure to COVID-19; Z79.899 Other long term (current) drug therapy
CPT/HCPCS: 0241U; 36415; 71046; 71275; 80053; 83880; 84484; 84702; 85025; 85379; 85610; 85730; 93005; 99284; Q9967

== ENCOUNTER 2022-04-15 10:34 | Emergency (ER) | payer MEDICAID, SELFPAY ==
[2022-04-15 10:35] VITALS: BP 119/86; PULSE 101; RESP 20; TEMP 36.8; O2SAT 100; BMI 26.6
--- NOTE | 2022-04-15 11:03 | PC.NURSE ---
pt presents with S.O at bedside, sts dhe has had ear problems for the las month. pt does not report pain , however she has noticed both ears draining. no discharge at present but sts there was one episode where she saw something red coming out of the ear. no acute distress. call heller within reach
--- NOTE | 2022-04-15 11:27 | ED_ITS ---
HPI - Ear Problem General Chief complaint: Ear Problems Stated complaint: ear issues Time Seen by Provider: 04/15/22 11:00 Source: patient Mode of arrival: ambulatory Limitations: no limitations History of Present Illness HPI Narrative: Patient is a 21-year-old female who presents emergency department for evaluation of bilateral ear pain. Onset was 1 month ago. Has associated drainage from both ears within odor, and itching. Denies any decreased hearing. She tried to be evaluated by her primary care provider, but they were unable to accommodate an appointment and she was referred to emergency department. She trialed in urgent care but they would not accept her insurance. Denies fevers or chills. Related Data Previous Rx's Medication Instructions Recorded nitrofurantoin 100 mg PO Q12H 3 days #6 caps 06/28/20 monohydrate/macrocrystals 100 mg capsule (Macrobid) fluconazole 150 mg tablet 150 mg PO Q3D 2 doses #2 tabs 10/25/21 (Diflucan) benzonatate 100 mg capsule 100 mg PO TID PRN cough 5 days #15 02/19/22 caps ibuprofen 400 mg tablet 400 mg PO Q6H PRN pain 7 days #28 02/19/22 tabs [id number] 3.5 4 drp otic (ears) QID 10 days #10 04/15/22 mg-10,000 unit/mL-1 % ear mL drops,susp Allergies Allergy/AdvReac Type Severity Reaction Status Date / Time pollen extracts [POLLEN] Allergy Intermediate SNEEZING, Unverified 10/25/21 16:57 EYE REDNESS [facility] SOAP Allergy Mild RASH Uncoded 12/04/19 17:23 Review of Systems Review of Systems: Ear: As noted in HPI Yes all other systems are reviewed and are negative [facility] Past Medical History Attestation statement: The following information was validated with the patient. Source: old records reviewed Medical History UTI (urinary tract infection) Social History Social History Advance Directives: No Advance Directives Information Provided: No Physical Exam Vital Signs: Vital Signs: Last Vital Signs Temp 98.2 F 04/15/22 10:35 Pulse 101 H 04/15/22 10:35 Resp 20 04/15/22 10:35 BP 119/86 04/15/22 10:35 Pulse Ox 100 04/15/22 10:35 O2 Del Method 04/15/22 10:35 BMI result Body Mass Index 26.6 Appearance: Alert.?Oriented to person, place and time. No acute distress.?Normal affect. Eyes: Pupils equal, round and reactive to light.? ENT: Pharynx normal.??TM normal on the left, unable to visualize on the right. Auricle and tragus without erythema, tenderness, or signs of trauma. Bilateral external canal with otitis externa Neck: Normal inspection.? Neck supple.?? CVS: Heart sounds normal. Normal heart rate and rhythm.? Pulses normal.?? Respiratory: No respiratory distress.? Lung sounds clear to auscultation bilaterally?? Skin: Skin warm and dry.? Normal skin color.? ? Neuro: Moves all extremities spontaneously. Sensation intact bilaterally. Ambulates with normal steady gait. Medical Decision Making Medical Decision Making MDM Narrative: Patient is a 21-year-old female who presents emergency department for evaluation of bilateral ear concern. Physical examination is consistent with otitis externa, at this time does not appear consistent with otomycosis, malignant otitis externa, acute otitis media. She is overall well-appearing, nontoxic, afebrile. Discussed with patient plan of care advised to avoid inserting anything into the ear canal as this may increase risk of tympanic membrane rupture, antibiotic drops sent to patient's pharmacy. Discussed worrisome signs and symptoms of warrant re-evaluation in the emergency department. All questions answered. Advised outpatient follow-up with primary care provider for persistent symptoms. Differential Diagnosis Differential Diagnoses: The differential diagnosis associated with the presentation includes (As noted above) Prescription Management I considered prescription management with: Antibiotic Discharge Plan Discharge Clinical Impression: Otitis externa Patient Disposition: Home, Self-Care Instructions: Otitis Externa (ED) Additional Instructions: Use antibiotic drops as prescribed. Do not insert anything into the ear canal as this does increase your chance rupture to the ear drum Follow-up with your primary care provider Return to emergency department any new or worsening symptoms or concerns. Prescriptions: New yvckuxbi-fxwgbqwdb-NE 3.5-10,000-1 mg/mL-unit/mL-% drops,suspension 4 drp otic (ears) QID 10 Days Qty: 10 0RF No Action nitrofurantoin monohyd/m-cryst [Macrobid] 100 mg capsule 100 mg PO Q12H 3 Days Qty: 6 0RF Rx Instructions: must administer with a meal/food fluconazole [Diflucan] 150 mg tablet 150 mg PO Q3D Qty: 2 0RF benzonatate 100 mg capsule 100 mg PO TID PRN (Reason: cough) 5 Days Qty: 15 0RF ibuprofen 400 mg tablet 400 mg PO Q6H PRN (Reason: pain) 7 Days Qty: 28 0RF Referrals: Physician,None [Primary Care Provider] -
== END 2022-04-15 11:54 | disposition home or self-care (01) ==
PROVIDERS: Emergency Provider Emergency Medicine
DX: H60.93 Unspecified otitis externa, bilateral (principal); H92.03 Otalgia, bilateral
CPT/HCPCS: 99283

== ENCOUNTER 2022-06-07 09:23 | Emergency (ER) | payer MEDICAID, SELFPAY ==
[2022-06-07 09:30] VITALS: BP 100/62; PULSE 108; O2SAT 97
[2022-06-07 09:32] VITALS: BP 104/78; PULSE 100; RESP 16; TEMP 38.1; O2SAT 100
[2022-06-07 09:34] VITALS: BMI 24.1
--- NOTE | 2022-06-07 09:51 | ECG_ITS ---
Test Reason : SYNCOPE Blood Pressure : / mmHG Vent. Rate : 095 BPM Atrial Rate : 095 BPM P-R Int : 142 ms QRS Dur : 074 ms QT Int : 324 ms P-R-T Axes : 049 029 023 degrees QTc Int : 407 ms Normal sinus rhythm Normal ECG When compared with ECG of 19-FEB-2022 14:42, T wave amplitude has decreased in Anterolateral leads Referred By: Dalia Mcclellan Electronically Signed By:STERLING SANTIAGO MD
--- NOTE | 2022-06-07 10:06 | ED.GENADULT ---
HPI - General Adult General Chief complaint: General Medical Stated complaint: Syncopal episode, fall w/ head strike per EMS Time Seen by Provider: 06/07/22 09:26 Source: patient and family Mode of arrival: EMS History of Present Illness HPI narrative: 21 y.o female w/ a 2-day hx of cold/flu symptoms presents to the ED via EMS following a witnessed syncopal episode at home this morning with +head strike on tile floor and <1min LOC. Pt states she stood up from her couch and suddenly felt lightheaded with a fast HR before losing consciousness. She endorses good p.o intake, and reports having 1 similar syncopal episode 2 years ago without further complications. Admits to subjective fever x2 days, and sore throat. Denies taking AC, head/neck/back pain, dizziness, visual changes, chest pain, SOB, nausea, vomiting, diarrhea, abdominal pain, missed or irregular menses, or any substance use. Onset (ago): hour(s) Related Data Previous Rx's Medication Instructions Recorded nitrofurantoin 100 mg PO Q12H 3 days #6 caps 06/28/20 monohydrate/macrocrystals 100 mg capsule (Macrobid) fluconazole 150 mg tablet 150 mg PO Q3D 2 doses #2 tabs 10/25/21 (Diflucan) benzonatate 100 mg capsule 100 mg PO TID PRN cough 5 days #15 02/19/22 caps ibuprofen 400 mg tablet 400 mg PO Q6H PRN pain 7 days #28 02/19/22 tabs [id number] 3.5 4 drp otic (ears) QID 10 days #10 04/15/22 mg-10,000 unit/mL-1 % ear mL drops,susp Allergies Allergy/AdvReac Type Severity Reaction Status Date / Time pollen extracts [POLLEN] Allergy Intermediate SNEEZING, Unverified 06/07/22 09:34 EYE REDNESS [facility] SOAP Allergy Mild RASH Uncoded 06/07/22 09:34 Review of Systems Review of Systems: Constitutional: + Fever, No Chills, No Fatigue, +Malaise ENT/Mouth: No Sinus Pain, + sore throat, + Rhinorrhea, No Swallowing Difficulty Eyes: No Eye Pain, No Vision Changes Cardiovascular: No Chest Pain, No SOB, No Dyspnea on Exertion, +Palpitations (resolved) Respiratory: No Cough, No Sputum, No Dyspnea Gastrointestinal: No Nausea, No Vomiting, No Diarrhea, No Constipation, No Abdominal pain Genitourinary: No irregular bleeding, No Dysuria, No Hematuria, No Flank Pain, Musculoskeletal: No joint pain, No Myalgias Skin: No Skin Lesions, No rash Neuro: No Weakness, No Numbness, No Paresthesias, + Loss of Consciousness, + Dizziness (resolved), No Headache Yes all other systems are reviewed and are negative Constitutional: Constitutional: Reports as per HPI Neurologic: Denies Abnormal speech present [facility] Past Medical History Attestation statement: The following information was validated with the patient. Medical History UTI (urinary tract infection) Social History Social History Advance Directives: No Advance Directives Information Provided: No Physical Exam ED Vital Signs: Vital Signs - 24 hr 06/07/22 09:32 06/07/22 10:10 06/07/22 10:10 Temperature 100.5 F H Pulse Rate 100 88 84 Respiratory Rate 16 Blood Pressure 104/78 118/68 127/65 Pulse Oximetry 100 Oxygen Delivery Method Room Air 06/07/22 10:11 Temperature Pulse Rate 105 H Respiratory Rate Blood Pressure 113/73 Pulse Oximetry Oxygen Delivery Method BMI result Body Mass Index 24.1 Const General: cooperative, healthy appearing, comfortable, no acute distress, alert, awake and Physically active Orientation/consciousness: patient oriented x3 Limitations: no limitations [facility] Head: Yes normal to inspection, Yes No palpable skull fracture present, Yes normocephalic, Yes atraumatic, No Watkins's sign, No hematoma, No laceration, No raccoon eyes, No scalp lesion and Yes scalp tenderness (occipital area mildly TTP ) Ears: hearing grossly normal bilaterally General nose exam: Normal external nose present Face and sinus: Yes normal facial exam Throat: Yes posterior oropharynx normal (Mild erythema ), Yes uvula midline, No uvula laterally displaced and No uvular edema Eyes General: appearance normal, both eyes and all related structures Alignment and Position: alignment normal Pupils: Equal, round and reactive pupils present EOM: EOMs intact bilaterally Neck Other: C-collar initially in place by EMS, cleared. No midline cervical spinous tenderness/upper for deformity Neck: Yes normal visual inspection, Yes full ROM and Yes no meningeal signs Resp Effort & Inspection: normal respiratory effort and no respiratory distress Auscultation: clear to auscultation bilaterally Cardio Rate: regular rate Heart sounds: S1 normal heart sound present and S2 normal heart sound present GI Inspection: Yes normal to inspection Palpation (GI): Soft to palpation, nontender, no guarding and not rigid Back/Spine/Pelvis Back: No back tenderness Cervical Spine: cervical ROM normal, No pain with cervical ROM and No Cervical spine tenderness Thoracic/Lumbar Spine: thoracic and lumbar spine normal to inspection and No thoracic spinal tenderness Skin Rashes: no rashes Wounds: no wounds Neuro General: patient oriented x3, tone normal, moves all extremities, no meningeal signs, no focal motor deficits and CN's II-XI intact bilaterally Cranial nerves: Yes CN's II-XII intact bilaterally and Yes Equal, round and reactive pupils present Cognition (Neuro): normal cognition Speech: No Abnormal speech present Motor exam (neuro): 5/5 motor strength present throughout and Pronator motor function not present Extrem General: Yes normal to inspection Course Course Course Narrative: -labs unremarkable, troponin negative, hCG negative -COVID-19 positive -orthostatic vital signs negative -1249-UA with ketones, not infected Results discussed with patient including worrisome signs and symptoms and strict return precautions, and when to return to the emergency department. They verbalized understanding and feel safe for discharge at this time. Medications Administered Discontinued Medications Generic Name Dose Route Start Last Admin Trade Name Flavia PRN Reason Stop Dose Admin Acetaminophen 650 mg 06/07/22 10:12 06/07/22 10:50 Acetaminophen 325 Mg Tablet PO 06/07/22 10:13 650 mg ONCE ONE Administration Sodium Chloride 1,000 mls @ 999 mls/hr 06/07/22 10:00 06/07/22 12:01 Ns IV 06/07/22 11:00 Infused .Q1H1M FARRAH Infusion Medical Decision Making Medical Decision Making MDM Narrative: 21 y.o female w/ a 2 day hx of cold/flu symptoms presents to the ED via EMS following a witnessed syncopal episode with +head strike & LOC. On exam pt is well-appearing, NAD, no complaints at present, low-grade fever 100.5, mildly tachycardic likely from fever. Head/neck exam shows mild TTP in occipital area from head strike without obvious deformity or open wounds. No midline spinous tenderness throughout, no focal neuro deficits Concern for orthostatic hypotension vs vasovagal syncope vs viral syndrome vs metabolic abnls. R/o arrhythmia. Low suspicion for ACS, ICH, seizure activity, ectopic , PE/ACS Plan: Covid/flu/RSV, Strep, Labs, EKG, UA, hCG, orthostatic vitals [place] head CT rule negative Please refer to course for remaining clinical decision making, interpretation of labs/imaging results, and discussions with consultants and/or family members. Differential Diagnosis Differential Diagnoses: The differential diagnosis associated with the presentation includes As above Admission/Observation Consideration of admission/observation: Escalation of care including admission/observation considered Lab Data MDM Lab Attestation statement: I reviewed the patient's lab results. 06/07/22 10:41 06/07/22 10:41 Labs: Lab Results 06/07/22 06/07/22 06/07/22 Range/Units 10:06 10:41 10:41 WBC 7.6 (4.8-10.8) X10*3/uL RBC 4.48 (4.20-5.50) X10*6/uL Hgb 12.6 (12.0-16.0) g/dl Hct 39.6 (37.0-47.0) % MCV 88.4 (80.0-98.0) fL MCH 28.1 (27.0-33.0) pg MCHC 31.8 (31.0-35.0) g/dl RDW 13.7 (11.0-16.0) % Plt Count 257 (160-400) X10*3/uL MPV 10.2 (9.4-12.3) fL Immature Gran % (Auto) 0.4 (0.0-0.4) % Neut % (Auto) 72.6 (45-73) % Lymph % (Auto) 15.3 L (20-40) % [place] % (Auto) 11.4 H (2-11) % Eos % (Auto) 0.0 (0-4) % Baso % (Auto) 0.3 (0-2) % Lymph # (Auto) 1.2 (1.2-4.9) X10*3/uL [place] # (Auto) 0.9 (0.1-1.2) X10*3/uL Eos # (Auto) 0.0 (0.0-0.4) X10*3/uL Baso # (Auto) 0.0 (0.0-0.2) X10*3/uL Abs Immat Gran (auto) 0.03 (0.00-0.03) X10*3/uL Absolute Neuts (auto) 5.5 (2.0-8.3) x10*3/uL Absolute Nucleated RBC 0.000 (0.0-0.012) X10*3/uL Nucleated RBC % (auto) 0.0 (0.0-0.2) /100WBC Sodium 141 (135-145) mmol/L Potassium 4.3 (3.3-5.1) mmol/L Chloride 111 H (96-108) mmol/L Carbon Dioxide 22 (22-29) mmol/L Anion Gap 12 (12-20) BUN 5 L (9-16) mg/dL Creatinine 0.99 (0.5-1.4) mg/dL Estim Creat Clear Calc 80.8 Estimated GFR > 60 Random Glucose 87 (60-115) mg/dL Calcium 8.6 D (8.4-10.2) mg/dL Magnesium 1.8 (1.6-2.6) mg/dL Total Bilirubin 0.4 (0.0-1.0) mg/dL Direct Bilirubin 0.2 (0.0-0.5) mg/dL AST 17 (5-31) U/L ALT 14 (0-31) U/L Alkaline Phosphatase 66 (39-117) U/L Troponin I High Sens (<3.5-17.0) ng/L Total Protein 7.1 (6.5-8.0) g/dL Albumin 4.0 (3.5-5.0) g/dL Beta HCG, Quant < 2 mIU/mL Urine Color Urine Appearance Urine pH (5.0-9.0) Ur Specific [place] (1.005-1.025) Urine Protein (Neg-Trace) mg/dL Urine Glucose (UA) (Negative) mg/dL Urine Ketones (Negative) mg/dL Urine Blood (Negative) Urine Nitrite (Negative) Ur Leukocyte Esterase (Negative) Influenza Type A (PCR) NEGATIVE (Negative) Influenza Type B (PCR) NEGATIVE (Negative) RSV RNA Qual (PCR) NEGATIVE (Negative) SARS-CoV-2 RNA (RT-PCR) POSITIVE A (Negative) S. pyogenes GrpA LIZETTE (Negative) 06/07/22 06/07/22 06/07/22 Range/Units 10:41 10:58 12:30 WBC (4.8-10.8) X10*3/uL RBC (4.20-5.50) X10*6/uL Hgb (12.0-16.0) g/dl Hct (37.0-47.0) % MCV (80.0-98.0) fL MCH (27.0-33.0) pg MCHC (31.0-35.0) g/dl RDW (11.0-16.0) % Plt Count (160-400) X10*3/uL MPV (9.4-12.3) fL Immature Gran % (Auto) (0.0-0.4) % Neut % (Auto) (45-73) % Lymph % (Auto) (20-40) % [place] % (Auto) (2-11) % Eos % (Auto) (0-4) % Baso % (Auto) (0-2) % Lymph # (Auto) (1.2-4.9) X10*3/uL [place] # (Auto) (0.1-1.2) X10*3/uL Eos # (Auto) (0.0-0.4) X10*3/uL Baso # (Auto) (0.0-0.2) X10*3/uL Abs Immat Gran (auto) (0.00-0.03) X10*3/uL Absolute Neuts (auto) (2.0-8.3) x10*3/uL Absolute Nucleated RBC (0.0-0.012) X10*3/uL Nucleated RBC % (auto) (0.0-0.2) /100WBC Sodium (135-145) mmol/L Potassium (3.3-5.1) mmol/L Chloride (96-108) mmol/L Carbon Dioxide (22-29) mmol/L Anion Gap (12-20) BUN (9-16) mg/dL Creatinine (0.5-1.4) mg/dL Estim Creat Clear Calc Estimated GFR Random Glucose (60-115) mg/dL Calcium (8.4-10.2) mg/dL Magnesium (1.6-2.6) mg/dL Total Bilirubin (0.0-1.0) mg/dL Direct Bilirubin (0.0-0.5) mg/dL AST (5-31) U/L ALT (0-31) U/L Alkaline Phosphatase (39-117) U/L Troponin I High Sens < 3.5 (<3.5-17.0) ng/L Total Protein (6.5-8.0) g/dL Albumin (3.5-5.0) g/dL Beta HCG, Quant mIU/mL Urine Color Dark Yellow Urine Appearance Cloudy Urine pH 6.0 (5.0-9.0) Ur Specific [place] >= 1.030 H (1.005-1.025) Urine Protein Trace (Neg-Trace) mg/dL Urine Glucose (UA) Negative (Negative) mg/dL Urine Ketones 15 (Negative) mg/dL Urine Blood Negative (Negative) Urine Nitrite Negative (Negative) Ur Leukocyte Esterase Negative (Negative) Influenza Type A (PCR) (Negative) Influenza Type B (PCR) (Negative) RSV RNA Qual (PCR) (Negative) SARS-CoV-2 RNA (RT-PCR) (Negative) S. pyogenes GrpA LIZETTE Negative (Negative) Independent Interpretation I performed an independent interpretation of an: EKG Interpretation: EKG normal sinus rhythm at a rate of 95. MI interval 142. QTC 407. No STEMI Radiology Impression Discussion of test interpretation with radiology: I have reviewed the radiologist's reading. External Record Review External record reviewed: Inpatient record, Office record, Outpatient record, Prior outpatient labs, Prior outpatient radiology, Primary care record and Outside ED record Discharge Plan Discharge Clinical Impression: COVID-19, Syncope Patient Disposition: Home, Self-Care Instructions: Syncope (ED), COVID-19 (Coronavirus Disease 2019) (ED) Additional Instructions: You have COVID-19. Please self isolate. Monitor and control your temperatures with Tylenol and Motrin Please increase fluid intake Follow-up closely with her doctor If symptoms persist or worsen you develop recurrent lightheadedness/dizziness, passing out episodes, persistent unremitting headache/nausea/vomiting, chest pain or shortness of breath return to the ED At this time you will be okay for discharge. Please self isolate for 5-10 days. Do not expose yourself to others. You may not go to work or school. Please continue to follow cold instructions and wash your hands frequently. You may take Tylenol / Motrin as directed on the bottle for pain or fever. If you have constant or persistent shortness of breath, fever unresolved with medications, chest pain, or your unable to eat or drink please return to the ED CDC Guidelines for home isolation: - Stay away from others - WEAR A MASK if you are sick AND STAY HOME - Cover your mouth and nose with a tissue when you cough or sneeze. Dispose of tissues in a lined trash can and wash your hands immediately with soap and water for at least 20 seconds. If soap and water are not available, clean hands with alcohol-based hand peanut blancher that contains at least 60% alcohol. - Clean your hands often with soap and water for at least 20 seconds - Avoid touching your eyes, nose and mouth with unwashed hands - Do not share dishes, drinking glasses, cups, eating utensils, towels, or bedding with other people in your home. After using these items, wash them thoroughly with soap and water or put in the air conditioning supervisor. - Clean high-touch surfaces in your isolation area ( sick room and bathroom) every day; let a caregiver clean and disinfect high-touch surfaces in other areas of the home. Clean the area or item with soap and water or another detergent if it is dirty. Then, use a household disinfectant. - Limit contact with pets and animals: If you must care for a pet, wash your hands before and after interacting with them) Prescriptions: No Action nitrofurantoin monohyd/m-cryst [Macrobid] 100 mg capsule 100 mg PO Q12H 3 Days Qty: 6 0RF Rx Instructions: must administer with a meal/food fluconazole [Diflucan] 150 mg tablet 150 mg PO Q3D Qty: 2 0RF [id number] 3.5-10,000-1 mg/mL-unit/mL-% drops,suspension 4 drp otic (ears) QID 10 Days Qty: 10 0RF benzonatate 100 mg capsule 100 mg PO TID PRN (Reason: cough) 5 Days Qty: 15 0RF ibuprofen 400 mg tablet 400 mg PO Q6H PRN (Reason: pain) 7 Days Qty: 28 0RF Referrals: [facility] [Primary Care Provider] - 3 days Stand Alone Forms: Work/School Release Interventions: ED Discharge Assessment Last Done: 06/07/22 13:15 Discharge Date/Time: 06/07/22 13:17
[2022-06-07 10:10] VITALS: BP 118/68; BP 127/65; PULSE 84; PULSE 88
[2022-06-07 10:11] VITALS: BP 113/73; PULSE 105
--- NOTE | 2022-06-07 10:14 | MHC.EDTECH ---
Orthostatic vitals completed
[2022-06-07] MEDS: 0.9 % Sodium Chloride 1,000 ML 999 ML IV (10:50)
[2022-06-07] MEDS: Acetaminophen 325 MG TABLET 650 MG PO (10:50)
[2022-06-07 10:51] LABS: MANUAL DIFF FLAG NO
[2022-06-07 10:56] LABS: Basophils Percent Auto 0.3 % (0-2); Hematocrit 39.6 % (37.0-47.0); Hemoglobin 12.6 g/dl (12.0-16.0); Imm Gran Abs Auto 0.03 X10*3/uL (0.00-0.03); Imm Gran Pct Auto 0.4 % (0.0-0.4); Lymphocytes Absolute Auto 1.2 X10*3/uL (1.2-4.9); Lymphocytes Percent Auto 15.3 % (20-40); Mean Corpuscular HGB Conc 31.8 g/dl (31.0-35.0); Mean Corpuscular Hemoglobin 28.1 pg (27.0-33.0); Mean Corpuscular Volume 88.4 fL (80.0-98.0); Mean Platelet Volume 10.2 fL (9.4-12.3); Monocytes Absolute Auto 0.9 X10*3/uL (0.1-1.2); Monocytes Percent Auto 11.4 % (2-11); Neutrophils Absolute Auto 5.5 x10*3/uL (2.0-8.3); Neutrophils Percent Auto 72.6 % (45-73); Platelet Count 257 X10*3/uL (160-400); Red Blood Count 4.48 X10*6/uL (4.20-5.50); Red Cell Distribution Width 13.7 % (11.0-16.0); White Blood Count 7.6 X10*3/uL (4.8-10.8)
[2022-06-07 11:02] LABS: Influenza A PCR NEGATIVE (Negative); Influenza B PCR NEGATIVE (Negative); Resp Syncy Virus RNA Qual PCR NEGATIVE (Negative); SARS COV2 PCR INHOUSE POSITIVE (Negative)
[2022-06-07 11:19] LABS: IDNOW Serial# 08D9AD1C; Strep A Nucleic Acid Negative (Negative)
[2022-06-07 11:47] LABS: Troponin-I High Sensitivity < 3.5 ng/L (<3.5-17.0)
[2022-06-07 11:54] LABS: Alanine Aminotransferase 14 U/L (0-31); Alkaline Phosphatase 66 U/L (39-117); Anion Gap 12 (12-20); Aspartate Amino Transferase 17 U/L (5-31); Bilirubin Direct 0.2 mg/dL (0.0-0.5); Bilirubin Total 0.4 mg/dL (0.0-1.0); Blood Urea Nitrogen 5 mg/dL (9-16); Calcium 8.6 mg/dL (8.4-10.2); Carbon Dioxide 22 mmol/L (22-29); Chloride 111 mmol/L (96-108); Creatinine Clr Calc Pharmacy 80.8; Estimated Glomerular Filt Rate > 60; Glucose Random 87 mg/dL (60-115); Magnesium 1.8 mg/dL (1.6-2.6); Potassium 4.3 mmol/L (3.3-5.1); Sodium 141 mmol/L (135-145); Total Protein 7.1 g/dL (6.5-8.0)
[2022-06-07 11:57] LABS: HCG Quantitative < 2 mIU/mL
[2022-06-07 12:39] LABS: Appearance Urine Cloudy; Color Urine Dark Yellow; Glucose Urine UA Negative (Negative); Leukocyte Esterase Urine Negative (Negative); Nitrite Urine Negative (Negative); Specific Gravity - Urine >= 1.030 (1.005-1.025); Urine Blood Negative (Negative); Urine Ketones 15 mg/dL (Negative); Urine Protein Trace mg/dL (Neg-Trace)
== END 2022-06-07 13:17 | disposition home or self-care (01) ==
PROVIDERS: Physician Assistant; Emergency Provider Emergency Medicine
DX: U07.1 COVID-19 (principal); R55 Syncope and collapse; Z79.899 Other long term (current) drug therapy
CPT/HCPCS: 0241U; 36415; 80048; 80076; 81003; 83735; 84484; 84702; 85025; 87651; 93005; 96360; 99284